=== PATIENT | male | born 1955 | race Caucasian/White ===

== ENCOUNTER → 2017-02-26 | Outpatient (CLI) | payer OTHER ==
[~2017-02-26] VITALS: Ht 175.3 cm; Wt 103.9 kg
[~2017-02-26] MED LIST: ASPIR 8181 MG PO; DOK100 M1 PO; IMDUR ER TAB 3030 MG PO; LIPITOR TAB 2020 MG PO; LISINOPRIL10 MG PO; LORTAB 7.5-3251 EACH PO; METOPROLOL TART25 MG PO; NEURONTIN 300300 MG PO; NITROSTAT0.4 MG SL; OMEPRAZOLE40 MG PO; SERTRALINE HCL100 MG PO; SPIRIVA18 MCG INH; SYMBICORT 160-1 INHA INH; TIZANIDINE HCL4 MG PO; VENTOLIN/PROVE0.5 ML INH; VIT B-12 PO; VIT D3 PO; ZYRTEC10 MG PO
[2017-02-26 06:35] LABS: HEMOGLOBIN 13.7 gm/dl (14.0-17.5); RED BLOOD COUNT 4.43 M/UL (4.20-5.50); WHITE BLOOD COUNT 7.7 K/UL (4.5-11.0)
[2017-02-26 07:20] LABS: BUN/CREATININE RATIO 14 (0-10)
== END | disposition home or self-care (01) ==
LOC: CATH 05:49
PROVIDERS: Internal Medicine Interventional Cardiology
DX: R94.39 Abnormal result of other cardiovascular function study (principal); R07.89 Other chest pain; I20.8 Other forms of angina pectoris; R06.02 Shortness of breath; I10 Essential (primary) hypertension; J44.9 Chronic obstructive pulmonary disease, unspecified; Z79.82 Long term (current) use of aspirin; Z79.891 Long term (current) use of opiate analgesic; Z79.899 Other long term (current) drug therapy; K21.9 Gastro-esophageal reflux disease without esophagitis
CPT/HCPCS: 36415; 80048; 85025; 85610; 85730; 93005; C1769; C1887; J0583; J1644; J2250; J3010; J7030; Q0163; Q9963